=== PATIENT | male | born 1970 | race Caucasian/White ===

== ENCOUNTER → 2017-08-04 | Day surgery (SDC) | payer OTHER ==
[2017-07-13 16:00] VITALS: Ht 172.7 cm; Wt 90.9 kg
[~2017-08-04] VITALS: Ht 172.7 cm; Wt 90.9 kg
[~2017-08-04] MED LIST: ATROPINE SULFATE 0.1 MG/ML 5ML SYR IV PRN; BUPIVACAINE/EPINEPHRINE 0.5% MPF 1:200,000 30 ML VIAL ONE; CEFAZOLIN 2000MG IV PUSH 10 ML IV SCH; DEXAMETHASONE SOD INJ 4 MG/ML VIAL ONE; EpHEDrine SULFATE INJ 50 MG/ML AMP IV PRN; FENTANYL CITRATE INJ 50 MCG/1 ML 2 ML VIAL ONE; FLUMAZENIL 0.1 MG/1 ML 10 ML VIAL IV PRN; HYDR-5688 PO; HYDROCODONE/ACETAMOPHEN 5/325MG TAB PO PRN; HYDROmorphone INJ 2 MG/ML SYR/VIAL IV PRN; KETOROLAC TROMETHAMINE 30 MG/ML VIAL ONE; LABETALOL HCL IV 5 MG/ML 20ML IV PRN; LACTATED RINGER'S 1000ML 1,000 ML IV SCH; LIDOCAINE HCL 2% 2 ML VIAL (20MG/ML) ONE; MEPERIDINE HCL 25 MG/ML CARP IV PRN; METOCLOPRAMIDE HCL INJ 5 MG/ML 2 ML VIAL ONE; MIDAZOLAM HCL 1 MG/ML 2ML VIAL ONE; NALOXONE HCL 0.4 MG/1 ML VIAL/CARP IV PRN; ONDANSETRON INJ 2 MG/ML 2 ML VIAL IV PRN; ONDANSETRON INJ 2 MG/ML 2 ML VIAL ONE; PHENYLEPHRINE 100MCG/ML 5ML SYR IV PRN; PROPOFOL IV EMULSION 10 MG/ML 20 ML VIAL IV ONE; SODIUM CHLORIDE 0.9% 1000ML 1,000 ML IV SCH
--- NOTE | 2017-08-04 09:01 | History & Physical Bridge Note ---
H&P Re-Evaluation Bridge Note: I have examined the patient, reviewed the History & Physical and in the interval since the performance of the History & Physical I have noted the following changes of clinical significance: No changes noted
--- NOTE | 2017-08-04 10:09 | [facility] Operative Report ---
Operative Report Operative Date Aug 04, 2017. Pre-Operative Diagnosis Umbilical Hernia Post-Operative Diagnosis Same Procedure(s) Performed Umbilical Hernia Open Repair Surgeon Dr. Bowman Principal Automation Engineer Surgeon(s) Deandra Quinn PA-C Estimated Blood Loss 5 ml Findings 1.5 cm umbilical hernia with omental incarceration Specimens None Anesthesia LMA Complication(s) None Disposition Recovery Room / PACU Description of Procedure After informed consent was obtained the patient was taken the operating room and placed in supine position. After successful placement of the laryngeal mask airway the abdomen was shaved and sterilely prepped and draped in usual fashion. A curvilinear infraumbilical incision was made with 15 blade scalpel and carried down through the soft tissue using electrocautery. I then used a Jackie clamp to come around the superior aspect of the umbilicus. I detached the umbilical stalk using electrocautery and encountered a hernia sac which I divided. There was omentum incarcerated within it. It was rather stuck to the fascia so I amputated it. After I amputated it the remainder of it dunked into the abdominal cavity without difficulty. This left us with about a 1-1.5 cm fascial defect. Because of its small size I opted not to use mesh. I closed the defect using 0 Ethibond in interrupted [id number] fashion. The Wound was thoroughly irrigated and there was adequate hemostasis. I reattach the umbilicus to fascia using 0 Vicryl. I closed the deep space using 3-0 Vicryl and skin closed using 4-0 Monocryl. Marcaine was injected around for postoperative analgesia and skin glue used as a dressing. My physician's shampoo assistant was present throughout the entire case. He helped prepped the area. He helped with retraction throughout the case. He also helped with closure of the deep layers as well as skin and applied the dressings I attest to the content of the Intraoperative Record and any orders documented therein. Any exceptions are noted below.
--- NOTE | 2017-08-04 10:12 | Discharge Instructions ---
Discharge Instructions Date of Service Aug 04, 2017. Visit Reason for Visit: Umbilical Hernia Discharge Discharge Diagnosis / Problem: Umbilical Hernia Discharge Goals Goal(s): Decrease discomfort, Improve function Activity Recommendations Activity Limitations: as noted below Lifting Limitations: no more than 10 pounds, until after follow-up appointment Exercise/Sports Limitations: until after follow-up appointment Shower/Bathe: tomorrow Driving or Machine Use: resume 3 days after discharge (Do not drive while using narcotic pain medication.) Anesthesia . Post Anesthesia Instructions: If you have had General Anesthesia or IV Sedation: * Do not drive today. * Resume driving when surgeon permits. * Do not make important decisions or sign legal documents today. * Call surgeon for: 1. Temperature elevations greater than 101 degrees F. 2. Uncontrollable pain. 3. Excessive bleeding. 4. Persistent nausea and vomiting. 5. Medication intolerance (nausea, vomiting or rash). * For nausea and vomiting use only clear liquids such as: tea, soda, bouillon until nausea subsides, then gradually increase diet as tolerated. * If you have any concerns or questions, call your surgeon's office. If physician is unavailable and it is an emergency, call 911 or go to the nearest emergency room. . Instructions / Follow-Up Instructions / Follow-Up You have surgical glue covering your incision. Please allow this to fall off on its own. You have been given [place] to take as needed for pain relief. You may alternate this with Ibuprofen for better pain relief as well. You may ice your incision site as needed to reduce pain and inflammation. 20 minutes on, 20 minutes off. Please follow-up with Dr. Bowman in 2 weeks. Please contact our office at [phone] to schedule an appointment if you have not done so already. Please contact our office with any questions or concerns. [facility]. [address] [place] [address]. Diet Recommendations Recommended Home Diet: no limitations, resume previous diet Procedures Procedures Performed: Umbilical Hernia Open Repair Pending Studies Studies pending at discharge: no Medical Emergencies . Who to Call and When: Medical Emergencies: If at any time you feel your situation is an emergency, please call 911 immediately. . Non-Emergent Contact Non-Emergency issues call your: Primary Care Provider, Surgeon Call Non-Emergent contact if: you have a fever, temperature is above 101.5, your pain is not controlled, your pain is worsening, wound has increased drainage, wound has increased redness . . "Provider Documentation" section prepared by Fitz Quinn. . [place] Drug Monitoring Program Search Results: patient reviewed within database, no issues identified
[2017-08-04] MEDS: FENTANYL CITRATE INJ 50 MCG/1 ML 2 ML VIAL IV PRN ×4 (10:30→10:59)
[2017-08-04 11:18] VITALS: TEMP 37
--- NOTE | 2017-08-04 11:45 | Anesthesia Progress Nt - [facility] ---
Anesthesia Post Op Note Date & Time Aug 04, 2017 at 11:45 Vital Signs Pain Intensity: 2 Vital Signs Past 12 Hours Date Time Temp Pulse Resp B/P (MAP) Pulse Ox O2 Delivery O2 Flow Rate FiO2 08/04/17 11:18 37.0 63 16 137/75 (95) 96 Room Air 08/04/17 11:05 65 17 08/04/17 11:05 68 17 129/78 90 08/04/17 11:02 37.1 71 16 127/77 97 Room Air 08/04/17 11:00 65 14 08/04/17 11:00 63 14 127/77 89 08/04/17 10:55 77 23 08/04/17 10:55 76 23 136/81 90 08/04/17 10:50 70 16 08/04/17 10:50 72 16 138/89 96 08/04/17 10:45 64 21 08/04/17 10:45 59 21 137/90 100 08/04/17 10:40 69 16 136/84 98 08/04/17 10:40 61 16 08/04/17 10:35 59 16 08/04/17 10:35 61 16 139/87 99 08/04/17 10:30 62 17 08/04/17 10:30 62 17 135/93 99 08/04/17 10:29 37 91 14 151/92 100 Diffusion Mask 6 08/04/17 10:25 66 21 08/04/17 10:25 65 21 145/95 100 08/04/17 10:20 75 18 140/88 100 08/04/17 10:20 75 18 08/04/17 10:15 72 17 08/04/17 10:15 71 17 147/93 100 08/04/17 10:10 89 08/04/17 10:10 89 151/92 97 08/04/17 08:08 36.5 73 20 156/97 (116) 97 Room Air Notes Mental Status: alert / awake / arousable, participated in evaluation Pt Amnestic to Procedure: Yes Nausea / Vomiting: adequately controlled Pain: adequately controlled Airway Patency, RR, SpO2: stable & adequate BP & HR: stable & adequate Hydration State: stable & adequate Anesthetic Complications: no major complications apparent
[2017-08-04 11:46] VITALS: BP 156/89; PULSE 64; O2SAT 95
== END | disposition home or self-care (01) ==
LOC: X.SURG 08:02
PROVIDERS: ATTEND Surgery
DX: K42.9 Umbilical hernia without obstruction or gangrene (principal); Z87.891 Personal history of nicotine dependence; I10 Essential (primary) hypertension